=== PATIENT | male | born 1955 | race Caucasian/White ===

== ENCOUNTER 2018-10-27 14:35 | Emergency (ER) | payer OTHER ==
[~2018-10-27] VITALS: Ht 190.5 cm; Wt 116.4 kg
[2018-10-27 14:41] VITALS: BP 146/69; PULSE 60; TEMP 98.3
[2018-10-27] MEDS ORDERED: PRINIVIL10 MG PO (14:59)
== END 2018-10-27 15:56 | disposition home or self-care (01) ==
LOC: COL.ER 14:35
DX: S01.511A Laceration without foreign body of lip, initial encounter (principal); S01.81XA Laceration without foreign body of other part of head, initial encounter; W54.0XXA Bitten by dog, initial encounter